=== PATIENT | male | born 1975 | race African-American/Black ===

== ENCOUNTER 2018-06-07 10:35 | Inpatient (IN) | payer OTHER ==
[2018-06-07 11:30] VITALS: BMI 26.7
--- NOTE | 2018-06-07 12:23 | HP ---
CIWA Score Nausea/Vomitin Muscle Tremors: 2 Anxiety: 2 Agitation: 2 Paroxysmal Sweats: 1-Minimal Palms Moist Orientation: 0-Oriented Tacttile Disturbances: 1-Very Mild Itch/Numbness Auditory Disturbances: 0-None Visual Disturbances: 1-Very Mild Sensitivity Headache: 2-Mild CIWA-Ar Total Score: 13 - Admission Criteria [facility]ASAS Guidelines: Admission for Medically Managed Detox: Requires at least one of the followin. CIWA greater than 12 2. Seizures within the past 24 hours 3. Delirium tremens within the past 24 hours 4. Hallucinations within the past 24 hours 5. Acute intervention needed for co occurring medical disorder 6. Acute intervention needed for co occurring psychiatric disorder 7. Severe withdrawal that cannot be handled at a lower level of care (continued vomiting, continued diarrhea, abnormal vital signs) requiring intravenous medication and/or fluids 8. Patient presents the following: CIWA greater than 12 Admission Criteria Met: Admission criteria met Admission ROS BHS - HPI Chief Complaint: i nned help to stop drinking alcohol,cocaine,heroin abused, Allergies/Adverse Reactions: Allergies Allergy/AdvReac Type Severity Reaction Status Date / Time No Known Allergies Allergy Verified 06/07/18 12:41 History of Present Illness: this 43 years old male with alcohol dependence,cocaine dependence,heroin abused, seeking help detox,with drawal symptom,last detox [facility] 2016 not completed nicotine dependence longest period of sobriety 2 years weight loss plan out patient program Exam Limitations: No Limitations - Ebola screening Have you traveled outside of the country in the last 21 days: No (N) Have you had contact with anyone from an Ebola affected area: No Have you been sick,other than usual withdrawal symptoms: No Do you have a fever: No - Review of Systems Constitutional: Loss of Appetite, Malaise, Night Sweats, Changes in sleep, Weakness, Unintentional Wgt. Loss EENT: reports: Tearing, Nose Congestion Respiratory: reports: No Symptoms reported Cardiac: reports: No Symptoms Reported GI: reports: Nausea, Vomiting, Abdominal cramping : reports: No Symptoms Reported Musculoskeletal: reports: Back Pain, Muscle Pain Integumentary: reports: Dryness Neuro: reports: Headache, Tremors Endocrine: reports: No Symptoms Reported Hematology: reports: No Symptoms Reported Psychiatric: reports: No Sypmtoms Reported, Judgement Intact, Mood/Affect Appropiate, Orientated x3 Other Systems: Reviewed and Negative Patient History - Patient Medical History Hx Anemia: No Hx Asthma: No Hx Chronic Obstructive Pulmonary Disease (COPD): No Hx Cancer: No Hx Cardiac Disorders: No Hx Congestive Heart Failure: No Hx Hypertension: No Hx Hypercholesterolemia: No Hx Pacemaker: No HX Cerebrovascular Accident: No Hx Seizures: No Hx Dementia: No Hx Diabetes: No Hx Gastrointestinal Disorders: No Hx Liver Disease: No Hx Genitourinary Disorders: No Hx Sexually Transmitted Disorders: No Hx Renal Disease (ESRD): No Hx Thyroid Disease: No Hx Human Immunodeficiency Virus (HIV): No (last 2016 negative) Hx Hepatitis C: No Hx Depression: No Hx Suicide Attempt: No Hx Bipolar Disorder: No Hx Schizophrenia: No Other Medical History: nosuicidal,no homicidal - Patient Surgical History Past Surgical History: No - PPD History Documented Results: Negative w/o proof Implanted On Prior [facility] Admission?: No PPD to be Administered?: Yes - Smoking Cessation Smoking history: Current every day smoker Have you smoked in the past 12 months: Yes Aproximately how many cigarettes per day: 10 Cigars Per Day: 0 Hx Chewing Tobacco Use: No Initiated information on smoking cessation: Yes 'Breaking Loose' booklet given: 06/07/18 - Substance & Tx. History Hx Alcohol Use: Yes Hx Substance Use: Yes Substance Use Type: Alcohol, Cocaine, Heroin Hx Substance Use Treatment: Yes ([facility] 2016 not completed) - Substances Abused Alcohol Route: Oral Frequency: Daily Amount used: 1pint of rum/ 2 of 6 packs of 12 ozs of beer Age of first use: 18 Date of Last Use: 06/06/18 Cocaine Route: Smoking Frequency: Daily Amount used: 200$ Age of first use: 22 Date of Last Use: 06/06/18 Heroin Route: Inhalation Frequency: Daily Amount used: 6 bags Age of first use: 22 Date of Last Use: 06/06/18 Family Disease History - Family Disease History Family History: Denies Admission Physical Exam BHS - Vital Signs Vital Signs: Vital Signs - 24 hr 06/07/18 11:25 Temperature 97.7 F Pulse Rate 79 Respiratory 20 Rate Blood Pressure 126/69 - Physical General Appearance: Yes: Moderate Distress, Tremorous, Irritable, Sweating, Anxious HEENTM: Yes: Normal ENT Inspection, TRAV, Pharynx Normal Respiratory: Yes: Lungs Clear, Normal Breath Sounds, No Respiratory Distress Neck: Yes: Within Normal Limits, Supple, Trachea in good position Breast: Yes: Within Normal Limits Cardiology: Yes: Within Normal Limits, Regular Rhythm, Regular Rate, S1, S2 Abdominal: Yes: Within Normal Limits, Normal Bowel Sounds, Non Tender, Flat, Soft Genitourinary: Yes: Within Normal Limits Back: Yes: Muscle Spasm Musculoskeletal: Yes: Back pain, Joint Stiffness, Muscle Pain Extremities: Yes: Tremors Neurological: Yes: mica layer II-XII NML intact, Fully Oriented, Alert, Motor Strength 5/5 Integumentary: Yes: Dry Lymphatic: Yes: Within Normal Limits - Diagnostic (1) Alcohol dependence with uncomplicated withdrawal Current Visit: Yes Status: Acute (2) Cocaine dependence Current Visit: Yes Status: Acute (3) Heroin abuse Current Visit: Yes Status: Acute (4) Nicotine dependence Current Visit: Yes Status: Acute (5) Weight loss Current Visit: Yes Status: Acute Cleared for Admission [facility] - Detox or Rehab [facility] Level of Care: Medically Managed Detox Regimen/Protocol: Librium [facility] Breath Alcohol Content Breath Alcohol Content: 0 Urine Drug Screen - Results Drug Screen Negative: No Urine Drug Screen Results: LYNDSEY-Cocaine
[2018-06-07] MEDS ORDERED: MENTHOL/PHENOL 1 EACH UD MM PRN (12:31)
[2018-06-07] MEDS ORDERED: MAGNESIUM HYDROX 2400MG/30ML ORAL SUSPENSION 30 ML CUP PO PRN (12:31)
[2018-06-07] MEDS ORDERED: IBUPROFEN 400 MG TABLET (FP) PO PRN (12:31)
[2018-06-07] MEDS ORDERED: NICOTINE POLACRILEX 2 MG GUM BC PRN (12:31)
[2018-06-07] MEDS ORDERED: LOPERAMIDE HCL 2 MG CAPSULE PO PRN (12:31)
[2018-06-07] MEDS ORDERED: MAG HYDROX/AL HYDROX/SIMETH 30 ML UNIT-DOSE CUP PO PRN (12:31)
[2018-06-07] MEDS ORDERED: MAGNESIUM CITRATE 300 ML BOTTLE PO PRN (12:31)
[2018-06-07] MEDS ORDERED: hydrOXYzine PAMOATE 50 MG CAPSULE (FP) PO PRN (12:31)
[2018-06-07] MEDS ORDERED: chlordiazePOXIDE HCL 25 MG CAPSULE PO PRN (12:31)
[2018-06-07] MEDS ORDERED: P-EPHED 60MG/TRIPROLIDI 2.5MG TABLET PO PRN (12:31)
[2018-06-07] MEDS ORDERED: guaiFENesin/D-METHORPHAN HB 10 ML UNIT-DOSE CUPS PO PRN (12:31)
[2018-06-07] MEDS: CYCLOBENZAPRINE HCL 10 MG TABLET (FP) PO PRN (14:44)
[2018-06-07] MEDS: chlordiazePOXIDE HCL 25 MG CAPSULE PO SCH ×2 (17:20→23:13)
[2018-06-07] MEDS ORDERED: MELATONIN 5 MG TABLETS PO PRN (22:00)
[2018-06-07] MEDS: cloNIDine HCL 0.1 MG TABLET PO SCH (22:41)
[2018-06-07] MEDS: THIAMINE HCL 100 MG TABLET (FP) PO SCH (22:41)
[2018-06-08] MEDS: chlordiazePOXIDE HCL 25 MG CAPSULE PO SCH ×4 (05:34→22:33)
--- NOTE | 2018-06-08 09:53 | PN ---
S CIWA - CIWA Score Nausea/Vomitin-Mild Nausea/No Vomiting Muscle Tremors: 3 Anxiety: 1-Mildly Anxious Agitation: 2 Paroxysmal Sweats: 1-Minimal Palms Moist Orientation: 0-Oriented Tacttile Disturbances: 0-None Auditory Disturbances: 0-None Visual Disturbances: 0-None Headache: 2-Mild CIWA-Ar Total Score: 10 S Progress Note (SOAP) Subjective: tremor sweat anxiety restlessness Objective: 06/08/18 15:28 Vital Signs Temperature 96.4 F L 06/08/18 13:40 Pulse Rate 82 06/08/18 13:40 Respiratory Rate 18 06/08/18 13:40 Blood Pressure 102/68 06/08/18 13:40 O2 Sat by Pulse Oximetry (%) Laboratory Last Values WBC 9.1 K/mm3 (4.0-10.0) 06/08/18 08:00 RBC 4.80 M/mm3 (4.00-5.60) 06/08/18 08:00 Hgb 15.2 GM/dL (11.7-16.9) 06/08/18 08:00 Hct 43.0 % (35.4-49) 06/08/18 08:00 MCV 89.7 fl (80-96) 06/08/18 08:00 MCH 31.8 pg (25.7-33.7) 06/08/18 08:00 MCHC 35.4 g/dl (32.0-35.9) 06/08/18 08:00 RDW 14.3 % (11.9-15.9) 06/08/18 08:00 Plt Count 259 K/MM3 (134-434) 06/08/18 08:00 MPV 8.1 fl (7.5-11.1) 06/08/18 08:00 Sodium 143 mmol/L (136-145) 06/08/18 08:00 Potassium 4.1 mmol/L (3.5-5.1) 06/08/18 08:00 Chloride 111 mmol/L (98-107) H 06/08/18 08:00 Carbon Dioxide 26 mmol/L (21-32) 06/08/18 08:00 Anion Gap 7 MMOL/L (8-16) L 06/08/18 08:00 BUN 15 mg/dL (7-18) 06/08/18 08:00 Creatinine 1.0 mg/dL (0.55-1.3) 06/08/18 08:00 Creat Clearance w eGFR > 60 (>60) 06/08/18 08:00 Random Glucose 89 mg/dL (74-106) 06/08/18 08:00 Calcium 8.5 mg/dL (8.5-10.1) 06/08/18 08:00 Total Bilirubin 0.3 mg/dL (0.2-1) 06/08/18 08:00 AST 12 U/L (15-37) L 06/08/18 08:00 ALT 21 U/L (13-61) 06/08/18 08:00 Alkaline Phosphatase 69 U/L (45-117) 06/08/18 08:00 Total Protein 6.1 g/dl (6.4-8.2) L 06/08/18 08:00 Albumin 3.2 g/dl (3.4-5.0) L 06/08/18 08:00 RPR Titer Nonreactive (NONREACTIVE) 06/08/18 08:00 HIV 1&2 Antibody Screen Negative 06/08/18 08:00 HIV P24 Antigen Negative 06/08/18 08:00 lab noted Assessment: 06/08/18 15:28 withdrawal sx Plan: continue detox
[2018-06-08 10:08] LABS: HEMOGLOBIN 15.2 GM/dL (11.7-16.9); MCH 31.8 pg (25.7-33.7); MCHC 35.4 g/dl (32.0-35.9); MEAN CELL VOLUME 89.7 fl (80-96); MEAN PLT VOLUME 8.1 fl (7.5-11.1); PLATELET COUNT 259 K/MM3 (134-434); RDW 14.3 % (11.9-15.9); WHITE BLOOD COUNT 9.1 K/mm3 (4.0-10.0)
[2018-06-08] MEDS: PRENATAL VITAMINS W/ FOLIC ACID TABLET (FP) PO SCH (10:22)
[2018-06-08] MEDS: cloNIDine HCL 0.1 MG TABLET PO SCH ×2 (10:22→22:33)
[2018-06-08 11:20] LABS: ALBUMIN 3.2 g/dl (3.4-5.0); ALK PHOS 69 U/L (45-117); ANION GAP 7 MMOL/L (8-16); BILIRUBIN,TOTAL 0.3 mg/dL (0.2-1); BLOOD UREA NITROGEN 15 mg/dL (7-18); CALCIUM 8.5 mg/dL (8.5-10.1); CHLORIDE 111 mmol/L (98-107); CO2 26 mmol/L (21-32); GLUCOSE,RANDOM 89 mg/dL (74-106); POTASSIUM 4.1 mmol/L (3.5-5.1); SGOT/AST 12 U/L (15-37); SGPT/ALT 21 U/L (13-61); SODIUM 143 mmol/L (136-145); TOT PROT 6.1 g/dl (6.4-8.2)
[2018-06-08] MEDS ORDERED: FLU VACCINE QUAD 60 MCG/0.5 ML (MDV 18-19) IM ONE (12:00)
[2018-06-08] MEDS ORDERED: PNEUMOC 13-VAL CONJ-DIP CRM/PF 0.5 ML DISP.SYRIN IM ONE (12:00)
--- NOTE | 2018-06-08 19:00 | EKG ---
Test Reason : Blood Pressure : / mmHG Vent. Rate : 087 BPM Atrial Rate : 087 BPM P-R Int : 142 ms QRS Dur : 082 ms QT Int : 356 ms P-R-T Axes : 062 058 052 degrees QTc Int : 428 ms NORMAL SINUS RHYTHM NORMAL ECG NO PREVIOUS ECGS AVAILABLE Confirmed by XENIA ALEXANDRE, IBIS ([id number]) on 06/08/2018 6:59:41 PM Referred By: Confirmed By:IBIS MICHAELS MD
[2018-06-08] MEDS: THIAMINE HCL 100 MG TABLET (FP) PO SCH (22:32)
[2018-06-08] MEDS: ACETAMINOPHEN 325 MG TABLET (FP) PO PRN (22:34)
[2018-06-09] MEDS: chlordiazePOXIDE HCL 25 MG CAPSULE PO SCH ×2 (05:40→11:37)
[2018-06-09] MEDS: cloNIDine HCL 0.1 MG TABLET PO SCH ×2 (11:37→22:34)
[2018-06-09] MEDS: PRENATAL VITAMINS W/ FOLIC ACID TABLET (FP) PO SCH (11:37)
--- NOTE | 2018-06-09 13:12 | PN ---
S CIWA - CIWA Score Nausea/Vomitin-No Nausea/No Vomiting Muscle Tremors: 3 Anxiety: 1-Mildly Anxious Agitation: 3 Paroxysmal Sweats: 1-Minimal Palms Moist Orientation: 0-Oriented Tacttile Disturbances: 0-None Auditory Disturbances: 0-None Visual Disturbances: 0-None Headache: 1-Very Mild CIWA-Ar Total Score: 9 S Progress Note (SOAP) Subjective: tremor sweat restlessness trouble with concentration Objective: 06/09/18 13:14 Vital Signs Temperature 96.9 F L 06/09/18 13:09 Pulse Rate 98 H 06/09/18 13:09 Respiratory Rate 18 06/09/18 13:09 Blood Pressure 118/69 06/09/18 13:09 O2 Sat by Pulse Oximetry (%) Laboratory Last Values WBC 9.1 K/mm3 (4.0-10.0) 06/08/18 08:00 RBC 4.80 M/mm3 (4.00-5.60) 06/08/18 08:00 Hgb 15.2 GM/dL (11.7-16.9) 06/08/18 08:00 Hct 43.0 % (35.4-49) 06/08/18 08:00 MCV 89.7 fl (80-96) 06/08/18 08:00 MCH 31.8 pg (25.7-33.7) 06/08/18 08:00 MCHC 35.4 g/dl (32.0-35.9) 06/08/18 08:00 RDW 14.3 % (11.9-15.9) 06/08/18 08:00 Plt Count 259 K/MM3 (134-434) 06/08/18 08:00 MPV 8.1 fl (7.5-11.1) 06/08/18 08:00 Sodium 143 mmol/L (136-145) 06/08/18 08:00 Potassium 4.1 mmol/L (3.5-5.1) 06/08/18 08:00 Chloride 111 mmol/L (98-107) H 06/08/18 08:00 Carbon Dioxide 26 mmol/L (21-32) 06/08/18 08:00 Anion Gap 7 MMOL/L (8-16) L 06/08/18 08:00 BUN 15 mg/dL (7-18) 06/08/18 08:00 Creatinine 1.0 mg/dL (0.55-1.3) 06/08/18 08:00 Creat Clearance w eGFR > 60 (>60) 06/08/18 08:00 Random Glucose 89 mg/dL (74-106) 06/08/18 08:00 Calcium 8.5 mg/dL (8.5-10.1) 06/08/18 08:00 Total Bilirubin 0.3 mg/dL (0.2-1) 06/08/18 08:00 AST 12 U/L (15-37) L 06/08/18 08:00 ALT 21 U/L (13-61) 06/08/18 08:00 Alkaline Phosphatase 69 U/L (45-117) 06/08/18 08:00 Total Protein 6.1 g/dl (6.4-8.2) L 06/08/18 08:00 Albumin 3.2 g/dl (3.4-5.0) L 06/08/18 08:00 RPR Titer Nonreactive (NONREACTIVE) 06/08/18 08:00 HIV 1&2 Antibody Screen Negative 06/08/18 08:00 HIV P24 Antigen Negative 06/08/18 08:00 lab noted Assessment: 06/09/18 13:15 withdrawal sx Plan: continue detox
[2018-06-09 17:20] LABS: URINE APPEARANCE CLEAR; URINE BILIRUBIN NEGATIVE (<2.0 mg/dL); URINE COLOR LTYELLOW; URINE GLUCOSE (UA) NEGATIVE (NEGATIVE); URINE KETONE NEGATIVE (NEGATIVE); URINE LEUK ESTERASE NEGATIVE (NEGATIVE); URINE NITRITE NEGATIVE (NEGATIVE); URINE PROTEIN NEGATIVE (NEGATIVE); URINE UROBILINOGEN NEGATIVE mg/dL (0.2-1.0)
[2018-06-09] MEDS: ACETAMINOPHEN 325 MG TABLET (FP) PO PRN (17:40)
[2018-06-09] MEDS: CYCLOBENZAPRINE HCL 10 MG TABLET (FP) PO PRN (17:40)
[2018-06-09] MEDS: chlordiazePOXIDE 5 MG CAPSULE PO SCH ×2 (17:41→22:34)
[2018-06-09] MEDS: THIAMINE HCL 100 MG TABLET (FP) PO SCH (22:35)
[2018-06-10] MEDS: chlordiazePOXIDE 5 MG CAPSULE PO SCH (07:19)
[2018-06-10 09:38] VITALS: BP 104/57; PULSE 92; TEMP 98
--- NOTE | 2018-06-10 14:28 | DS ---
[facility] Detox Discharge Summary Admission Date: 06/07/18 Discharge Date: 06/10/18 - History Present History: Alcohol Dependence, Opioid Dependence Additional Comments: PATIENT CURRENTLY ON DETOX REGIMEN FOR ETOH WITHDRAWAL SX. PATIENT DENIES MEDICAL COMPLAINTS AND SI/HI. PATIENT STATES HE HAS A BUS TO TAKE TO GO TO [place] FOR A JOB. PATIENT ENCOURAGED TO COMPLETE DETOX AND DISCUSSED RISK FACTORS OF RELAPSE WITH SIGNING OUT AMA. PATIENT REFUSED TO STAY AND CONTINUED WITH AMA PROCESS. PATIENT STRONGLY ADVISED TO ATTEND GROUP MEETINGS AND TO SEEK MEDICAL ASSISTANCE IF WITHDRAWAL SX OCCUR. - Physical Exam Results Vital Signs: Vital Signs Temperature 98.0 F 06/10/18 09:37 Pulse Rate 92 H 06/10/18 09:37 Respiratory Rate 16 06/10/18 09:37 Blood Pressure 104/57 L 06/10/18 09:37 O2 Sat by Pulse Oximetry (%) - Medication Discharge Medications: Ambulatory Orders NK [No Known Home Medication] 06/07/18 - AMA Did Patient Leave Against Medical Advice: Yes
[2018-06-10] MEDS ORDERED: chlordiazePOXIDE HCL 10 MG CAPSULE PO SCH (17:00)
== END 2018-06-10 12:15 | disposition left against medical advice (07) | DRG 770 ==
LOC: YASAS 10:35 → Y3N 12:35
PROC: HZ2ZZZZ Detoxification Services for Substance Abuse Treatment (ICD-10-PCS; principal; 2018-06-07)
DX: F10.230 Alcohol dependence with withdrawal, uncomplicated (principal); F14.20 Cocaine dependence, uncomplicated; F11.10 Opioid abuse, uncomplicated; F17.213 Nicotine dependence, cigarettes, with withdrawal
CPT/HCPCS: 36415; 80053; 81003; 85027; 86593; 87389; 93005; 93010; J0735